=== PATIENT | male | born 1990 | race Two or more races ===

== ENCOUNTER 2023-12-04 09:44 | Emergency (ER) | payer OTHER ==
[~2023-12-04] VITALS: Ht 172.7 cm; Wt 68.0 kg
[2023-12-04] MEDS ORDERED: MAG HYDROX/AL HYDROX/SIMETH 30 ML UDC ONE (10:20)
[2023-12-04] MEDS ORDERED: LORAZEPAM 1 MG TABLET ONE (10:20)
[2023-12-04] MEDS: LORAZEPAM 1 MG TABLET PO ONE (10:22)
[2023-12-04] MEDS: MAG HYDROX/AL HYDROX/SIMETH 30 ML UDC PO ONE (10:23)
[2023-12-04 11:16] VITALS: BP 126/74; TEMP 97.9; O2SAT 98
== END 2023-12-04 11:17 | disposition home or self-care (01) ==
LOC: ER 10:16
DX: F41.9 Anxiety disorder, unspecified (principal)